=== PATIENT | male | born 1950 | race African-American/Black ===

== ENCOUNTER 2024-11-24 11:00 | Day surgery (SDC) | payer OTHER ==
[2024-11-19 16:03] VITALS: BMI 27.4
[2024-11-24 10:23] LABS: INR 1.15 (0.83-1.09); PROTHROMBIN TIME (PATIENT) 12.6 SEC (9.7-13.0)
[2024-11-24 12:45] LABS: CSF APPEARANCE CLEAR (CLEAR); CSF COLOR COLORLESS (COLORLESS); CSF WBC 6 mm3 (0-5)
[2024-11-24 13:01] LABS: BF GLUCOSE (CSF ONLY) 59 mg/dL (40-70)
[2024-11-24 13:09] VITALS: RESP 20
[2024-11-24 13:28] VITALS: TEMP 97.8
[2024-11-24 13:31] VITALS: BP 127/86; PULSE 63
== END 2024-11-24 12:50 | disposition home or self-care (01) ==
LOC: JRADIR 11:00
PROVIDERS: ATTEND Psychiatry & Neurology Neurology
PROC: 009U3ZX Drainage of Spinal Canal, Percutaneous Approach, Diagnostic (ICD-10-PCS; principal; 2024-11-24)
PROC: B01BZZZ Fluoroscopy of Spinal Cord (ICD-10-PCS; 2024-11-24)
DX: G35 Multiple sclerosis (principal)
CPT/HCPCS: 62272; 82945; 83916; 84157; 85610; 88108; 88305-TC

== ENCOUNTER 2025-02-01 05:21 | Day surgery (SDC) | payer OTHER ==
[2024-12-30 12:44] VITALS: BMI 27.3
[2025-02-01] MEDS ORDERED: MIDAZOLAM HCL 2 MG/2 ML SINGLE DOSE VIAL ONE (12:09)
[2025-02-01 12:39] VITALS: RESP 18
[2025-02-01 13:24] VITALS: BP 131/66; PULSE 66; TEMP 96.6
== END 2025-02-01 13:45 | disposition home or self-care (01) ==
LOC: JASU-SURG 05:21
PROVIDERS: ATTEND Urology
PROC: 0TF4XZZ Fragmentation in Left Kidney Pelvis, External Approach (ICD-10-PCS; principal; 2025-02-01 13:00)
DX: N20.0 Calculus of kidney (principal)